=== PATIENT | male | born 1985 | race Caucasian/White ===

== ENCOUNTER 2020-04-23 21:27 | Emergency (ER) | payer MEDICAID, OTHER ==
[~2020-04-23] VITALS: Ht 170.2 cm; Wt 89.1 kg
[2020-04-23 21:38] VITALS: BP 154/86
[2020-04-23] MEDS ORDERED: DICYCLOMINE 10 MG/ML (BENTYL) 2 ML AMP IM STA (21:43)
[2020-04-23] MEDS ORDERED: DICY20TA10 PO (21:43)
--- NOTE | 2020-04-23 21:43 | ED General ---
General Stated Complaint: ABD CRAMPING Source of Information: Patient, Old Records, RN/MD Exam Limitations: No Limitations History of Present Illness Date Seen by Provider: Apr 23, 2020 Time Seen by Provider: 21:38 Initial Comments This patient is a 34-year-old male presents to the emerge department complaining of abdominal cramping and diarrhea. 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 Patient states she been using quite a bit of opiates and heroin but has not used since Thursday and started having significant abdominal cramping and diarrhea today. Patient is requesting Pepto-Bismol only. Patient states he doesn't have any at home. Discussed at length with patient advised that we do not have this medication in the emergency department with the patient should be a "[id number] at the store. Patient states she's having quite a bit of cramping eased Pepto. I did discuss living with patient about options. I did offer full medical screening exam the patient declines. Patient is wishes to have something for the cramping. I did discuss at length about options. Patient will be given a tablet of Bentyl in the emergency department. Patient will also be discharged home with Bentyl as medication. Patient should take Pepto-Bismol to help relieve diarrhea [id number]. The patient wishes to have further medical screening exam patient should return to the emergency department. Associated Systoms: Denies Symptoms Allergies and Home Medications Allergies Coded Allergies: haloperidol (Verified Allergy, Unknown, 04/23/20) Patient Home Medication List Home Medication List Reviewed: Yes Review of Systems Review of Systems Constitutional: No no symptoms reported; see HPI; No chills, No diaphoresis, No dizziness, No fever, No malaise, No weakness, No weight gain, No weight loss, No other EENTM: No see HPI, No no symptoms reported, No ear discharge, No hearing loss, No ear pain, No blurred vision, No double vision, No eye pain, No tearing, No vi javier loss, No dental problems, No hoarseness, No mouth pain, No mouth swelling, No epistaxis, No nose congestion, No nose pain, No throat pain, No throat swelling, No other Respiratory: No no symptoms reported, No see HPI, No cough, No dyspnea on exertion, No hemoptysis, No orthopnea, No phlegm, No short of breath, No stridor, No wheezing, No other Cardiovascular: No no symptoms reported, No see HPI, No chest pain, No edema, No Hx of Intervention, No palpitations, No syncope, No vascular heart diseas, No other Gastrointestinal: No RUQ, No LUQ, No RLQ, No LLQ, No no symptoms reported; see HPI, abdominal pain; No constipation; diarrhea; No dysphagia, No hematemesis, No heartburn, No jaundice, No loss of appetite, No melena, No nausea, No vomiting, No other Genitourinary: No no symptoms reported, No see HPI, No decreased output, No discharge, No dysuria, No frequency, No hematuria, No hesitancy, No incontinence, No nocturia, No pain, No other Musculoskeletal: No no symptoms reported, No see HPI, No back pain, No gout, No joint pain, No joint swelling, No muscle pain, No muscle stiffness, No muscle cramps, No muscle twitching, No muscle weakness, No neck pain, No other Skin: No no symptoms reported, No see HPI, No change in color, No change in hair/nails, No dryness, No hx of skin cancer, No lesions, No lumps, No pruritus, No rash, No other All Other Systems Reviewed Negative Unless Noted: Yes Past Vperjmv-Njwlbn-Dgtyps Hx Patient Social History Recent Foreign Travel: No Contact w/Someone Who Travel: No Physical Exam Vital Signs Capillary Refill : Height, Weight, BMI Height: '" Weight: lbs. oz. kg; BMI Method: General Appearance: No Apparent Distress, WD/WN Respiratory: Chest Non Tender, Lungs Clear, Normal Breath Sounds, No Accessory Muscle Use, No Respiratory Distress Cardiovascular: Regular Rate, Rhythm, No Edema, No Gallop, No JVD, No Murmur, Normal Peripheral Pulses Gastrointestinal: Normal Bowel Sounds, No Organomegaly, No Pulsatile Mass, Non Tender, Soft Skin: Normal Color, Warm/Dry Progress/Results/Core Measures Suspected Sepsis SIRS Temperature: Pulse: Respiratory Rate: Blood Pressure / Mean: Results/Orders Vital Signs/I&O Capillary Refill : Progress Note : Time: 21:40 Progress Note Again patient states that he's been abusing heroin and opiates for some time and has been off them since Thursday for the past 4 days. Patient started having some diarrhea and abdominal cramping the lower abdomen this afternoon.. Patient is in the emergency department requesting Pepto-Bismol. Did offer the patient full medical screening exam patient declines wishes only a prescription for Pepto. Advised patient we do not carry Pepto-Bismol in the emergency department. However we'll give the patient a dental patient may go to the local store to get Pepto-Bismol [id number] patient states understanding patient is discharged home Departure Impression Primary Impression: Abdominal cramping Additional Impressions: Opiate withdrawal History of drug abuse Diarrhea Disposition: HOME, SELF-CARE Condition: Stable Departure-Patient Inst. Decision time for Depature: 21:41 Patient Instructions: Prescription Drug Withdrawal (DC) Add. Discharge Instructions: Encourage by mouth fluids. Bentyl as prescribed for abdominal cramping. Pepto- Bismol [id number] as needed to help with diarrhea. Try to avoid using drugs. Follow-up with PCP in 2-3 days Scripts Dicyclomine HCl (Dicyclomine HCl) 20 Mg Tablet 20 MG PO TID, #10 TAB 0 Refills Prov: KAVON NANCE MD 04/23/20 KAVON NANCE MD Apr 23, 2020 21:43
--- OUTSIDE RECORDS SUMMARY | 2020-04-23 22:28 | XMS REPORT | Continuity of Care Document ---
Author Organization Unknown Address Unknown Phone Unavailable Allergies There is no data. Medications There is no data. Problems There is no data. Procedures There is no data. Results Test Result Range GC/CHLAMYDIA (SWAB OR URINE)-RAPID - 16:28 CHLAMYDIA TRACHOMATIS RNA, TMA NOT DETECTED NOT DETECTED NEISSERIA GONORRHOEAE RNA, TMA NOT DETECTED NOT DETECTED COMMENT NRG Encounters ACCT No. Visit Date/Time Discharge Status Pt. Type Provider Facility Loc./Unit Complaint [id number] 04/19/2020 15:20:00 04/19/2020 23:59: 59 CLS Outpatient [facility] [id number] 04/12/2020 13:40:00 Document Registration
== END 2020-04-23 21:54 | disposition home or self-care (01) ==
LOC: ER FS 21:29
DX: R19.7 Diarrhea, unspecified (principal); F11.23 Opioid dependence with withdrawal; F19.11 Other psychoactive substance abuse, in remission; Z88.8 Allergy status to other drugs, medicaments and biological substances
CPT/HCPCS: 99284